=== PATIENT | male | born 1995 | race American Indian/Alaskan Native ===

== ENCOUNTER 2017-02-14 21:38 | Emergency (ER) | payer OTHER ==
[2017-02-14 22:16] VITALS: BMI 22.6
[2017-02-14 23:00] VITALS: RESP 16
[2017-02-14] MEDS ORDERED: TDAP Vaccine 0.5 mL Syr IM ONE (23:31)
[2017-02-15 00:42] VITALS: BP 110/69; PULSE 66; O2SAT 99
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
[2017-02-15 01:56] VITALS: TEMP 98
--- NOTE | 2017-02-15 09:33 | CT ---
PROCEDURE: CT HEAD WITHOUT CONTRAST. HISTORY: headache COMPARISON: None available. TECHNIQUE: Axial computed tomography images were obtained through the head/brain without intravenous contrast. Radiation dose: Total exam DLP = 677 mGy-cm. This CT exam was performed using one or more of the following dose reduction techniques: Automated exposure control, adjustment of the mA and/or kV according to patient size, and/or use of iterative reconstruction technique. FINDINGS: HEMORRHAGE: No intracranial hemorrhage. BRAIN: No mass effect or edema. No atrophy or chronic microvascular ischemic changes. VENTRICLES: Unremarkable. No hydrocephalus. CALVARIUM: Unremarkable. PARANASAL SINUSES: Unremarkable as visualized. No significant inflammatory changes. MASTOID AIR CELLS: Unremarkable as visualized. No inflammatory changes. OTHER FINDINGS: The report concurs with the preliminary [facility] report IMPRESSION: Normal CT of the Head.
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
--- NOTE | 2017-02-15 21:50 | CARD ---
APPROVED REPORT EKG Measurement Heart [id number] <Conclusion> Sinus rhythm with marked sinus arrhythmia Otherwise normal ECG
== END 2017-02-15 02:06 | disposition home or self-care (01) ==
LOC: ED 21:38
DX: S00.212A Abrasion of left eyelid and periocular area, initial encounter (principal); S00.12XA Contusion of left eyelid and periocular area, initial encounter; S09.90XA Unspecified injury of head, initial encounter; V49.50XA Passenger injured in collision with unspecified motor vehicles in traffic accident, initial encounter; R51 Headache; M54.2 Cervicalgia; Z23 Encounter for immunization; F17.210 Nicotine dependence, cigarettes, uncomplicated